=== PATIENT | male | born 1980 | race Asian ===

== ENCOUNTER 2024-04-25 20:52 | Emergency (ER) | payer MEDICAID ==
[~2024-04-25] VITALS: Ht 177.8 cm; Wt 100.0 kg
[2024-04-25 20:59] VITALS: TEMP 98.1; O2SAT 97
[2024-04-25] MEDS: SODIUM CHLORIDE 0.9% 1,000 ML IV ONE (21:59)
[2024-04-25 22:25] LABS: BASOPHILS % 0.4 % (0.0-2.0); EOSINOPHILS % 2.8 % (0.0-5.0); HEMATOCRIT. 39.3 % (42.0-52.0); HEMOGLOBIN. 13.8 g/dL (14.0-18.0); LYMPHOCYTES % 31.3 % (20.0-50.0); MEAN CORPUSCULAR HEMOGLOBIN 33.6 pg (28.0-32.0); MEAN CORPUSCULAR HGB CONC 35.1 g/dL (31.0-37.0); MEAN CORPUSCULAR VOLUME 95.8 fL (80.0-94.0); MEAN PLATELET VOLUME 6.5 fl (7.4-10.4); MONOCYTES % 6.5 % (2.0-8.0); PLATELET 214 x1000/uL (130-400); RED CELL DISTRIBUTION WIDTH 13.4 % (11.6-14.6); WHITE BLOOD COUNT 7.2 x1000/uL (4.5-11.0)
[2024-04-25 22:29] LABS: CHLORIDE 110 mEq/L (98-107); POTASSIUM 3.5 mEq/L (3.5-5.1); SODIUM 143 mEq/L (136-145)
[2024-04-25 22:30] LABS: CALCIUM 9.2 mg/dL (8.7-10.4); CARBON DIOXIDE 23 mEq/L (21-32)
[2024-04-25 22:34] LABS: *AMPHETAMINES SCREEN URINE NEGATIVE (NEGATIVE); *BARBITURATES SCREEN URINE NEGATIVE (NEGATIVE); *BENZODIAZEPINES SCREEN URINE NEGATIVE (NEGATIVE); *COCAINE SCREEN URINE NEGATIVE (NEGATIVE); METHADONE URINE SCREEN NEGATIVE (NEGATIVE)
[2024-04-25 22:35] LABS: CANNABINOID URINE SCREEN NEGATIVE (NEGATIVE); CREATININE 0.8 mg/dL (0.6-1.3); ECSTASY MDMA SCREEN URINE NEGATIVE (NEGATIVE); GLUCOSE 115 mg/dL (70-105); OPIATES URINE SCREEN NEGATIVE (NEGATIVE); PHENCYCLIDINE URINE SCREEN NEGATIVE (NEGATIVE); UREA NITROGEN BLOOD 18 mg/dL (9-23)
[2024-04-25 22:39] LABS: ETHANOL BLOOD < 10 mg/dL (<10); TROPONIN I HIGH SENSITIVITY < 4 ng/L (3.0-53)
[2024-04-25] MEDS: ACETAMINOPHEN 325MG TABLET PO ONE (23:06)
[2024-04-25 23:47] VITALS: BP 142/94; PULSE 76; RESP 18; O2SAT 98
== END 2024-04-25 23:55 | disposition home or self-care (01) ==
LOC: ER 20:52
DX: R55 Syncope and collapse (principal); E78.00 Pure hypercholesterolemia, unspecified
CPT/HCPCS: 80305; 80048; 80320; 85025; 84484; 36415; 71045; 93005; 96360; 99285; J7030; G0480